=== PATIENT | male | born 2000 | race Caucasian/White ===

== ENCOUNTER 2020-03-26 00:28 | Emergency (ER) | payer OTHER, SELFPAY ==
[2020-03-26 00:48] VITALS: BP 148/100; PULSE 89; RESP 16; TEMP 36.8; O2SAT 99; BMI 18.8
--- NOTE | 2020-03-26 00:52 | HMH.EDWNDL ---
ED Disposition Clinical Impression: Laceration Disposition: Home, Self-Care Condition on Discharge: Good Instructions: DI for Laceration Repair Additional Instructions: sutures out 10-12 days Prescriptions: cephALEXin [Keflex 500mg Cap] 500 mg PO TID #30 cap Transmission Status: Pending to [facility] Referrals: Casimiro Arana [Primary Care Provider] - - Critical Care Critical Care Time: No Attestation: On 03/26/20, the high probability of a clinically significant, sudden or life threatening deterioration of the following system(s) required my full and direct attention, intervention and personal management. The time I documented below is in addition to time spent performing reported procedures but includes the following listed in this critical care notation. Medical Decision Making - Medical Records Medical records reviewed: Yes: I reviewed the patient's medical records. - Toney Inquiry Pt receiving controlled substance: No Vital Signs: 03/26/20 00:48 Temperature 98.3 F Temperature Source Oral Pulse Rate [Right Brachial] 89 Respiratory Rate 16 Blood Pressure [Right Arm] 148/100 H Blood Pressure Mean [Right Arm] 116 Blood Pressure Source [Right Arm] Automatic Cuff Blood Pressure Position [Right Arm] Sitting 02 Sat by Pulse Oximetry 99 Oxygen Delivery Method Room Air - Lab Data Lab results reviewed: Yes: I reviewed the patient's lab results. Wound/Laceration HPI - General Chief Complaint: Wound/Laceration Stated Complaint: AO cut L pinky finger on glass 2300 Time Seen by Provider: 03/26/20 00:50 Mode of Arrival: Ambulatory Source of Information: Patient, Medical Record Limitations: No Limitations Description of Symptoms (Recalled from ER Triage Doc. by RN): Patient reports he was goofing off with friends and slapped the mirror of his truck. Patient has a laceration on his left pinky and some small cuts on the palm of his hand. - History of Present Illness HPI narrative: lac lt fifth finger at home - no other c/o Onset (ago): hour(s) Extremity Location: Left: hand Place: home Patient tetanus UTD: Yes Context: accidental Associated symptoms: none - Related Data Previous Rx's Medication Instructions Recorded cephALEXin [Keflex 500mg Cap] 500 mg PO TID #30 cap 03/26/20 Allergies Allergy/AdvReac Type Severity Reaction Status Date / Time amoxicillin [From AUGMENTIN] Allergy Unknown Verified 03/26/20 00:52 avocado [AVOCADO] Allergy Unknown SWELLING Verified 03/26/20 00:52 clavulanic acid Allergy Unknown Verified 03/26/20 00:52 [From AUGMENTIN] [facility] History - Hepatitis A Screen Drug use history?: No High risk sexual behaviors?: No History of sexually transmitted infection?: No Currently employed?: No Childcare worker?: No Do you have indoor plumbing?: Yes Do you have electricity?: Yes Attestation statement:: This patient has been screened for Hepatitis A risk factors. I have reviewed the patient's past medical history: Yes Medical History: Denies:: Cancer, Diabetes Mellitus Type 1, Diabetes Mellitus Type 2, MRSA Laterality Cases: Bilateral: Tonsillectomy Amputation: No Fractures: No - Social History Smoking Status: Never smoker Tobacco Type: smokeless tobacco Alcohol Intake: never Family Hx:: No significant family history ROS Obtained: Yes All systems reviewed & no additional complaints - Constitutional Constitutional: Denies fever(s) - Eyes Eyes: Denies change in vision - ENT Ears, Nose, Mouth, and Throat: Denies sore throat - Cardiovascular Cardiovascular: Denies chest pain - Respiratory Respiratory: No cough - Gastrointestinal Gastrointestingal: Denies: abdominal pain - Genitourinary Male Genitourinary: Denies hematuria - Musculoskeletal Musculoskeletal: Denies joint pain - Integumentary/Breasts Skin/Breast: Reports rash, Reports other (laceration) - Neurologic Neurologic: Denies seizure-like activity Physi
[2020-03-26 01:17] VITALS: BP 135/82; PULSE 86; RESP 16; TEMP 36.8; O2SAT 99
== END 2020-03-26 01:20 | disposition home or self-care (01) ==
PROVIDERS: Emergency Provider Emergency Medicine; PCP Pediatrics
DX: S61.217A Laceration without foreign body of left little finger without damage to nail, initial encounter (principal); W25.XXXA Contact with sharp glass, initial encounter; Y92.89 Other specified places as the place of occurrence of the external cause; Z88.1 Allergy status to other antibiotic agents
CPT/HCPCS: 12001; 99282

== ENCOUNTER 2020-09-11 23:27 | Emergency (ER) | payer SELFPAY ==
[2020-09-11 23:29] VITALS: BP 123/74; PULSE 101; RESP 16; TEMP 36.8; O2SAT 100; BMI 20.2
--- NOTE | 2020-09-11 23:45 | XR_ITS ---
PROCEDURE: XR ANKLE RT MIN 3V CLINICAL INDICATION: swelling/pain in RT ankle COMPARISON: CR ANKL3 ANKLE-LT-3 VIEWS from 06/20/2012 FINDINGS: No fracture or dislocation. No lytic or blastic change. There is normal mineralization. The joint spaces are well-preserved. No significant degenerative/arthritic changes. No erosive changes evident. Other findings:None. IMPRESSION: No acute findings. Dictated by: Kevin Cox MD 09/12/2020 05:31 Kevin Cox MD in [place] 09/12/2020 05:31
--- NOTE | 2020-09-12 00:10 | HMH.EDLOEX ---
ED Disposition Clinical Impression: Ankle sprain and strain Cellulitis Qualifiers: Site of cellulitis: extremity Site of cellulitis of extremity: lower extremity Laterality: right Qualified Code(s): L03.115 - Cellulitis of right lower limb Disposition: Home, Self-Care Condition on Discharge: Good Instructions: DI for Cellulitis -- Adult Additional Instructions: use meds and see pcp for follow up this week Prescriptions: Minocycline HCl [Minocycline HCl 100mg Tab*] 100 mg PO BID #20 tab Transmission Status: Pending to [facility] Meloxicam [Mobic 15 mg tab] 15 mg PO DAILY #10 tab Transmission Status: Pending to [facility] Referrals: Casimiro Arana [Primary Care Provider] - - Critical Care Critical Care Time: No Attestation: On 09/11/20, the high probability of a clinically significant, sudden or life threatening deterioration of the following system(s) required my full and direct attention, intervention and personal management. The time I documented below is in addition to time spent performing reported procedures but includes the following listed in this critical care notation. Medical Decision Making - Medical Records Medical records reviewed: Yes: I reviewed the patient's medical records. - Toney Inquiry Pt receiving controlled substance: No Vital Signs: 09/11/20 23:29 Temperature 98.2 F Temperature Source Oral Pulse Rate [Left Radial] 101 H Respiratory Rate 16 Blood Pressure [Right Arm] 123/74 Blood Pressure Mean [Right Arm] 90 Blood Pressure Source [Right Arm] Automatic Cuff Blood Pressure Position [Right Arm] Sitting 02 Sat by Pulse Oximetry 100 Oxygen Delivery Method Room Air - Lab Data Lab results reviewed: Yes: I reviewed the patient's lab results. Lab Results 09/12/20 00:40: WBC 11.5 H, RBC 4.71, Hgb 14.2, Hct 39.7 L, MCV 84.4, MCH 30.2, MCHC 35.8 H, RDW 12.7, Plt Count 229, MPV 7.7, Neut % (Auto) 74.0, Lymph % (Auto) 17.5, [place] % (Auto) 6.7, Eos % (Auto) 1.4, Baso % (Auto) 0.4, Neut # (Auto) 8.6 H, Lymph # (Auto) 2.0, [place] # (Auto) 0.8, Eos # (Auto) 0.2, Baso # (Auto) 0.1, ESR 37 H 09/12/20 00:40: Sodium 136, Potassium 3.9, Chloride 99, Carbon Dioxide 31 H, Anion Gap 9.9, BUN 14, Creatinine 0.90, Estimated Creat Clear 121, Estimated GFR 107, Est GFR ( Amer) 129, Glucose 109 H, Calcium 9.3, Total Bilirubin 0.5, AST 25, ALT 8 L, Alkaline Phosphatase 112, C-Reactive Protein 52.1 H, Total Protein 6.9, Albumin 4.2, Globulin 2.7, Albumin/Globulin Ratio 1.6 09/12/20 00:40: Lactate < 0.5 L Result diagrams: 09/12/20 00:40 09/12/20 00:40 Orders (Tests/Meds): ED MEDICATIONS Generic Name Dose Route Start Last Admin Trade Name Freq PRN Reason Stop Dose Admin Sodium Chloride 1,000 mls @ 999 mls/hr 09/12/20 01:00 09/12/20 00:56 Sod Chlor 0.9% 1000ml Bag IV 09/12/20 02:00 999 mls/hr .Q1H1M BI Administration Discontinued Medications Generic Name Dose Route Start Last Admin Trade Name Freq PRN Reason Stop Dose Admin Ketorolac Tromethamine 30 mg 09/12/20 00:53 09/12/20 00:55 Ketorolac 30mg/Ml Vial IV 09/12/20 00:54 30 mg ONCE ONE Administration Methylprednisolone Sodium Succinate 125 mg 09/12/20 01:54 Methylprednisolone Sod Succ 125mg Vial IV 09/12/20 01:55 ONCE ONE ORDERS Category Date Time Status XR ankle RT min 3V Stat Exams 09/11/20 23:45 Taken Blood Culture Stat Micro 09/12/20 00:40 Received - Radiology Data #1 Image(s): Ankle Image Reviewed: Yes I reviewed the patient's radiology image Preliminary Findings: No Fracture Seen Lower Extremity Injury HPI - General Chief Complaint: Extremity Injury, Lower Stated Complaint: Right foot swollen Time Seen by Provider: 09/12/20 00:00 Mode of Arrival: Ambulatory Source of Information: Patient, Medical Record Limitations: No Limitations Description of Symptoms (Recalled from ER Triage Doc. by RN): pt stated he rolled his right ankle 2 days ago
[2020-09-12 00:57] LABS: Basophils # 0.1 K/mm3 (0-0.2); Basophils % 0.4 % (0.1-2.0); Eosinophils # 0.2 K/mm3 (0.0-0.4); Eosinophils % 1.4 % (0.1-12.0); Hematocrit 39.7 % (42.0-52.0); Hemoglobin 14.2 g/dL (14.1-18.0); Lymphocytes % 17.5 % (10-50); Mean Corpuscular HGB Conc 35.8 g/dL (31.8-35.4); Mean Corpuscular Hemoglobin 30.2 pg (27.0-31.2); Mean Corpuscular Volume 84.4 fl (80-94); Mean Platelet Volume 7.7 fl (7.4-10.4); Monocytes # 0.8 K/mm3 (0.1-1.0); Monocytes % 6.7 % (1.7-9.3); Neutrophils # 8.6 K/mm3 (1.8-7.8); Platelet Count 229 K/mm3 (142-424); Red Blood Count 4.71 M/mm3 (4.60-6.20); Red Cell Distribution Width 12.7 % (11.5-17.5); White Blood Count 11.5 K/mm3 (4.8-10.8)
[2020-09-12 01:03] LABS: Alanine Aminotransferase 8 U/L (12-78); Albumin Level 4.2 g/dl (3.5-5.0); Albumin/Globulin Ratio 1.6 (1.1-1.8); Alkaline Phosphatase 112 U/L (38-126); Anion Gap 9.9 mEq/L (5-15); Aspartate Amino Transferase 25 U/L (17-59); Bilirubin,Total 0.5 mg/dl (0.2-1.3); Blood Urea Nitrogen 14 mg/dl (9-20); Calcium 9.3 mg/dl (8.4-10.2); Carbon Dioxide 31 mmol/L (22.0-30.0); Chloride 99 mmol/L (98-107); Creatinine Clearance Estimated 121 mL/min (50-200); Estimated Glomerular Filt Rate 107 ml/min (>60); GFR (African American) 129 ML/MIN (>60); Globulin 2.7 g/dL (1.3-3.2); Glucose 109 mg/dl (74-100); Potassium 3.9 mmoL/L (3.5-5.1); Sodium 136 mmol/L (136-145); Total Protein,Serum 6.9 g/dl (6.3-8.2)
[2020-09-12 01:04] LABS: Lactic Acid < 0.5 mmol/L (0.7-2.1)
[2020-09-12 01:08] LABS: C-Reactive Protein 52.1 mg/L (0-4)
[2020-09-12 01:29] LABS: Erythrocyte Sedimentation Rate 37 mm/hr (0-15)
[2020-09-12 02:11] VITALS: BP 117/71; PULSE 91; RESP 16; TEMP 36.9; O2SAT 97
== END 2020-09-12 02:14 | disposition home or self-care (01) ==
PROVIDERS: Emergency Provider Emergency Medicine; PCP Pediatrics
DX: L03.115 Cellulitis of right lower limb (principal); S93.401A Sprain of unspecified ligament of right ankle, initial encounter; X50.1XXA Overexertion from prolonged static or awkward postures, initial encounter; Y92.9 Unspecified place or not applicable
CPT/HCPCS: 36415; 73610; 80053; 83605; 85025; 85651; 86140; 87040; 96365; 99283